=== PATIENT | female | born 1950 | race Caucasian/White ===

== ENCOUNTER 2016-12-28 11:05 | Outpatient (CLI) | payer MEDICARE, BC ==
[2016-12-28] MEDS ORDERED: Iopamidol 370 76% 100 ML VIAL ONE (14:09)
--- NOTE | 2016-12-28 14:18 | CT ---
EXAM: NONCONTRAST AND POSTCONTRAST HEAD CT: HISTORY: Dizziness. Lung cancer. Unsteady gait for a few weeks. COMPARISON: None. CORRELATION: Brain MRI 03/09/16. TECHNIQUE: Pre- and postcontrast head CT Is performed in the axial plane. FINDINGS: NONCONTRAST HEAD CT: There is vasogenic edema involving the right frontal lobe with sulcal effacement. No significant mi dline shift. Basilar cisterns are patent. With the exception of the right frontal lobe, cortical g ray-white matter differentiation is within normal limits. There is a hypodensity in the left cerebellar hemisphere which has evidence of edema and effacement of the cerebellar folia. There is adequate aeration of sinuses and mastoid air cells. Calvarium is intact. POSTCONTRAST HEAD CT: The aforementioned area of hypoattenuation of the right frontal lobe has 2 discrete enhancing foci. The smaller focus measures 0.8 x 0.8 cm. The larger focus measures 2.7 x 2.3 cm. Additional areas of enhancement are noted in the supratentorial brain. There is a focus of enhancement adjacent to the frontal horn of the left lateral ventricle measuring 0.6 cm. There is an enhancing focus involv ing the left frontal cortex measuring 0.5 cm. There is a peripherally enhancing focus in the left cerebellar hemisphere associated with the area o f hypoattenuation on the noncontrast exam measuring 2.2 x 2.1 cm. There is an adjacent enhancing fo cus measuring 0.6 cm. There is a small enhancing focus in the posteromedial right cerebellar hemisp here measuring 0.7 cm. IMPRESSION: Multifocal intracranial metastases. Metastatic lesions were not present on the previous MRI. Results of the study discussed with Dr. Singh 12/28/16 at 11:57 a.m. CODE CR POS: [facility]
== END 2016-12-28 11:06 | disposition home or self-care (01) ==
LOC: EDBD → CT 11:05
PROVIDERS: ATTEND Internal Medicine Hematology & Oncology
DX: C34.80 Malignant neoplasm of overlapping sites of unspecified bronchus and lung (principal); R42 Dizziness and giddiness; R11.0 Nausea; C79.31 Secondary malignant neoplasm of brain
CPT/HCPCS: 70470; 80053; 82248; 83615; 84100; 84295; 84550

== ENCOUNTER 2016-12-29 08:29 | Outpatient (CLI) | payer MEDICARE, BC ==
[2016-12-29] MEDS ORDERED: Gadobenate Dimeglumine 529 MG/1 ML (20ML VIAL) ONE (09:00)
--- NOTE | 2016-12-29 11:42 | MRI ---
MRI OF THE BRAIN WITHOUT AND WITH CONTRAST: COMPARISON: CT brain 12/28/16 and MRI brain 03/09/16. HISTORY: Lung cancer with brain metastases. TECHNIQUE: Multiplanar multisequence MR images were obtained in the brain without and with IV contrast. FINDINGS: There are multiple enhancing masses within the brain. Some of these masses also demonstrated restri cted diffusion. One of the masses in the right periventricular white matter measures 2.6 cm in size and has intrinsic high T1 signal which may represent hemorrhage. There are 2 masses in the right f rontal lobe, 1 mass in the left periventricular white matter, and multiple masses in the bilateral c erebellar hemispheres. Vasogenic edema is seen surrounding the larger masses. No midline shift or downward herniation is seen. The corpus callosum, pituitary, and craniocervical junction are unremarkable. The expected flow voi ds are present. IMPRESSION: Multifocal intracranial metastatic disease. POS: [facility]
== END 2016-12-29 08:30 | disposition home or self-care (01) ==
LOC: EDBD → SCSMRI 08:29
PROVIDERS: ATTEND Internal Medicine Hematology & Oncology
DX: C34.90 Malignant neoplasm of unspecified part of unspecified bronchus or lung (principal); C71.9 Malignant neoplasm of brain, unspecified
CPT/HCPCS: 70553; A9579

== ENCOUNTER 2017-01-11 10:06 | Inpatient (IN) | payer MEDICARE, BC ==
--- NOTE | 2017-01-11 11:10 | RAD ---
LEFT HIP TWO VIEWS: History: Fall, left hip pain. FINDINGS: No acute fracture or dislocation is identified. POS: [facility]
--- NOTE | 2017-01-11 11:14 | RAD ---
PORTABLE CHEST 1 VIEW: DATE: . TIME: 10:49 a.m. HISTORY: Hemoptysis. FINDINGS: Comparison is made with the exam of 11/30/16. There is continued elevation of the left hemidiaphragm with a small left pleural effusion. There is a right-sided Port-A-Cath which was also seen on the previous study. There is a left hilar and sup rahilar mass. There is widening of the mediastinum with a probable right paratracheal mass. No pne umothoraces are seen. Findings suspicious for malignancy/metastatic disease. POS: [facility]
--- NOTE | 2017-01-11 11:45 | CT ---
CT OF THE BRAIN WITHOUT IV CONTRAST: Indication: History of seizures. Comparison: 12-28-16 FINDINGS: The degree of vasogenic edema involving the metastatic lesion of the right frontal lobe has mildly i mproved. The degree of vasogenic edema surrounding the metastatic lesion within the lower left cereb ellar hemisphere is also mildly improved. There is no hydrocephalus. No midline shift is noted. No a cute infarct, hemorrhage, or hydrocephalus is present. Septum pellucidum and third ventricle are mid line. Skull and extracranial soft tissues are unremarkable. IMPRESSION: 1. Since the comparison CT examination dated 12-28-16, the degree of vasogenic edema involving the me tastatic lesion of the right frontal lobe left cerebellar hemisphere appears slightly less prominent . 2. No acute intracranial hemorrhage, infarct, or hydrocephalus is present. POS: [facility]
[2017-01-11 12:09] LABS: Hematocrit 47.5 % (36.0-47.0); Mean Platelet Volume 6.1 fL (7.4-10.4); Red Blood Cell (RBC) Count 4.88 mill/uL (4.20-5.40); White Blood Cell (WBC) Count 27.5 thou/uL (4.8-10.8)
[2017-01-11 12:34] LABS: ALT (SGPT) 75 U/L (8-55); AST (SGOT) 41 U/L (5-34); Alkaline Phosphatase 93 U/L (40-150); Anion Gap 14 mmol/L (10-20); BUN (Urea Nitrogen) 37 mg/dL (9.8-20.1); Bilirubin, Total 0.9 mg/dL (0.2-1.2); Calc. Creatinine Clearance 0 mL/min (70-130); Calcium 9.7 mg/dL (7.8-10.44); Carbon Dioxide 27 mmol/L (23-31); Chloride 92 mmol/L (98-107); Estimated GFR-MDRD 59; Globulin 2.7 g/dL (2.4-3.5); Magnesium 2.3 mg/dL (1.6-2.6); Protein, Total 6.4 g/dL (6.0-8.3)
[2017-01-11 12:38] LABS: Band 9 % (5-11); Hypersemented Neutrophil SLIGHT; Neutrophil 86 % (42-75)
[2017-01-11] MEDS ORDERED: Albuterol Sulfate 2.5 mg/3 ml Neb NEB PRN (14:17)
--- NOTE | 2017-01-11 14:46 | HP ---
PRIMARY CARE PHYSICIAN: Yosi Rivera M.D. REASON FOR ADMISSION: Dyspnea, seizure. HISTORY OF PRESENT ILLNESS: A 66-year-old female, who has metastatic small cell lung cancer who pre sented to the emergency room for the above-mentioned reason. Patient has a long history of small cell lung cancer which was diagnosed about 2-1/2 years ago. At that time, patient was started on chemotherapy with the carboplatin; and as per the patient's family member, patient had significant improvement and her PET scan came back negative. During that perio d, the patient also had CT chest and that showed new lymph node development in her thorax and that i s why the patient was given another round of carboplatin therapy and after that her focal lung lesio n was resolved and patient had a negative PET scan. During that period, patient also had a prophyla ctic radiation therapy to her brain. Patient was getting a different type of chemotherapy for recurrence. At that time, patient develope d atrial fibrillation required admission in hospital and pericardial window was done for severe sly cardial effusion. The patient was discharged after that she was complaining of nausea, vomiting, headache and she had MRI brain that confirmed brain metastasis. The patient was kept on Decadron and patient was getting intracranial radiation. Patient also saw MD Lazcano last Monday; and the MD Lazcano oncologist team recommended that they cannot do anything until intracranial metastasis result for study for a small cell lung cancer. On Monday after MD Lazcano visit, patient came to home. The patient was having increasing cough, incr easing shortness of breath. Yesterday night, the patient had hemoptysis one time and this morning t he patient had big amount of hemoptysis this morning. The patient was not able to go for radiation therapy on Monday and Monday because of she was not feeling good. The patient also had episode of fall on Monday when she went for radiation therapy, but because of fall she was hurting in her left hip and she was not able to go for radiation and next day she was also not able to go for radiation. Today, she took extra pain medicine and she decided to go to radiation. Before going for radiation, this morning, the patient had focal tonic-clonic activity of left upper extremity and the patient's face was rolled on the left side with eye rolled on the left side and th at lasted for 20 seconds and subsequently patient became normal. Patient was able to finish her rad iation therapy today, but patient was sent to the ER from Oncology Clinic. In Oncology clinic, her hip x-ray is negative for any fracture or dislocation. Her chest x-ray show ing wide mediastinum, left hilar and suprahilar mass and right paratracheal mass. CT brain did show degree of vasogenic edema and metastatic lesion in the right frontal lobe and left cerebral hemisph ere less prominent than before. Patient is still complaining of difficulty breathing. She is using her home nebulizer therapy. At this point, we are admitting this patient for dyspnea, new onset seizure. REVIEW OF SYSTEMS: Please see my HPI for pertinent positives and negatives. All other review of sy stems are reviewed and negative except as mentioned in the HPI. Constitutional: Weight loss or gain, ability to conduct usual activities. Skin: Rash, itching. Eyes: Double vision, pain. ENT/Mouth: Nose bleeding, neck stiffness, pain, tenderness. Cardiovascular: Palpitations, dyspnea on exertion, orthopnea. Respiratory: Shortness of breath, wheezing, cough, hemoptysis, fever or night sweats. Gastrointestinal: Poor appetite, abdominal pain, heartburn, nausea, vomiting, constipation, or diar taylor. Genitourinary: Urgency, frequency, dysuria, nocturia. Musculoskeletal: Pain, swelling. Neurologic/Psychiatric: Anxiety, depression. Allergy/Immunologic: Skin rash, bleeding tendency. PAST MEDICAL HISTORY: Metastatic small cell lung cancer with intrathoracic and intracranial metasta sis, COPD, chronic respiratory failure on home oxygen, dyslipidemia, migraine headache, paroxysmal a trial fibrillation, hypothyroidism, hypertension, history of pericardial effusion required pericardi al window. PAST SURGICAL HISTORY: Cholecystectomy, hysterectomy, partial thyroidectomy, tonsillectomy, lung bi opsy, Port-A-Cath placement, pericardial window. PAST PSYCHIATRIC HISTORY: Reviewed and negative. SOCIAL HISTORY: Patient is and lives at home with the family. No history of tobacco, alcoh ol or illicit drug abuse. She is a former smoker. She has a history of smoking about 1 pack per da y, but quit 3 years ago when she was diagnosed with the lung cancer. FAMILY HISTORY: No strong family history of premature coronary artery disease, stroke or cancer. ALLERGIES: STRAWBERRY and STREPTOMYCIN. CURRENT HOME MEDICATIONS: Albuterol nebulization as needed basis, aspirin 81 mg p.o. daily, Lipitor 20 mg p.o. daily, Fioricet one tablet as needed, Cardizem CD 180 mg p.o. daily, Synthroid 88 mcg p. o. daily, lisinopril 5 mg p.o. daily, Claritin 10 mg p.o. daily, sodium chloride 1 g p.o. t.i.d., No rco 5 one tablet q.4 hourly p.r.n., Symbicort 2 puff inhalation b.i.d., amiodarone 100 mg twice santiago y, Decadron 2 mg twice daily. EMERGENCY ROOM COURSE: Patient is given IV fluid. PHYSICAL EXAMINATION: VITAL SIGNS: On arrival, blood pressure 136/88, pulse 115, respiratory rate 20, temperature 98.5, s aturation 96% on 2 liters oxygen, weight 60.7 kilograms. GENERAL: Patient is currently alert, awake, in no obvious acute distress. HEAD: Normocephalic, atraumatic. Eyes: Pupils round, reactive to light. Extraocular muscles intact. ENT: Moist mucous membranes. No oral lesions. No pharyngeal erythema. No exudate. NECK: Supple. Range of motion is normal. No JVD. No thyromegaly. No carotid bruits. LUNGS: Bilateral end expiratory wheezing heard. Air entry reduced both sides. No accessory muscle s of respiration in use. CARDIAC: S1, S2 regular, tachycardia, no murmur, no gallop, no rub. ABDOMEN: Soft, bowel sounds present, nontender, nondistended. No organomegaly. No mass. No supra pubic tenderness. BACK: Unremarkable. No CVA tenderness. EXTREMITIES: Upper extremity passive movement of all joints are normal. Lower extremity, trace tobin ateral pitting edema noted on the foot. No calf tenderness. Good peripheral pulsation. SKIN: No skin rash. HEMATOLOGICAL SYSTEM: No lymphadenopathy. PSYCHIATRIC: Anxious affect. NEUROLOGIC: The patient is moving all four limbs. Motor and sensation within normal limits. No fo timmy neurological deficit noted. SIGNIFICANT LABS: WBC 27.5, hemoglobin 14.8, platelet 284,000 with bandemia. BMP: Sodium 129, pot assium 4.3, chloride 92, carbon dioxide 27, BUN 37, creatinine 0.95, glucose 128, calcium 9.7. LFT: AST 41, ALT 75, alkaline phosphatase 93, albumin 3.7. Prolactin 35.26. IMAGINGS: Hip x-ray negative for any fracture or dislocation. Chest x-ray shows Port-A-Cath in jazmin ce, small left pleural effusion, left hemidiaphragm elevation, left hilar and suprahilar mass, media stinal widening with right paratracheal mass. CT brain showing less prominent vasogenic edema and m etastatic lesion in the right frontal lobe and left cerebral hemisphere, no new findings. EKG showi ng sinus tachycardia. ADDITIONAL INFORMATION: The patient reports that she has finished antibiotic for urinary tract infe ction recently. Patient is getting nebulizer treatment every day basis, but that is not helping. ASSESSMENT AND PLAN: 1. Recurrent hemoptysis. At this point, differential diagnosis of lung cancer. Family member john bai that is on spatial chemotherapy she is on that contributing to her hemoptysis, but most likel y this is related with underlying bronchitis versus lung cancer. At this point, the patient does no t have any massive hemoptysis. We will monitor in hospital; if this we will also consult Dr. Ocampo to come and see this patient as well. We will empirically start on broad-spectrum antibiotic therap y. We will give her Robitussin-AC cough syrup while in hospital and will control her cough. 2. Seizure focal partial, this patient has brain metastases. Per patient, this type of seizure act ivity happened again 3 days ago and today which was witnessed. I will start Keppra 1 g IV twice abel ly. We will consult Neurology for their opinion. 3. Brain metastases. We will continue Decadron 4 mg IV q. 6 hourly while in hospital. Patient is also started on seizure medication. The patient will continue to get brain radiation therapy while in hospital. 4. Metastatic small cell lung cancer with intrathoracic and intracranial metastases. Dr. Francisco brandon be consulted and they will manage while in hospital. Further decision regarding goal of care an d palliative care option. We will defer to Oncology team. 5. Chronic obstructive pulmonary disease exacerbation. We will be continuing Decadron 4 mg IV q.6 h., DuoNeb q.4 h. Dulera 2 puffs inhalation b.i.d., empiric antibiotic therapy, cefepime and Levaqui n therapy, Mucinex 600 mg twice daily, oxygen to keep saturation above 92%. 6. Hyponatremia likely due to syndrome of inappropriate antidiuretic hormone secretion. We will co ntinue salt 1 g tablets 3 times daily as per home dosage. 7. Paroxysmal atrial fibrillation, not a candidate for chronic anticoagulation because of hemoptysi s as well as a recent pericardial effusion and brain metastasis. We will continue Cardizem-CD 180 m g p.o. daily. If patient is tachycardic, then we will increase the dose of Cardizem-CD 240 mg durin g this admission. 8. Hypothyroidism. We will continue Synthroid 88 mcg p.o. daily. 9. Hypertension. We will continue lisinopril 5 mg p.o. daily. 10. Deep venous thrombosis prophylaxis. Sequential compression device boots. No aspirin or any he nancy products because of hemoptysis. 11. Gastrointestinal prophylaxis, Protonix 40 mg p.o. daily. CODE STATUS: The patient is at this point FULL CODE and the patient's is surrogate decision maker. Disposition plan based on clinical course and pulmonary recommendations. We are expecting patient's stay in hospital more than 2 midnights. Plan of care discussed with the patient in detail.
[2017-01-11] MEDS ORDERED: Furosemide 20 MG/2 ML VIAL SLOW IVP SCH (15:00)
[2017-01-11] MEDS ORDERED: HYDROcodone/Acetaminophen 5/325 mg Tablet PO PRN ×2 (15:16→16:15)
[2017-01-11] MEDS ORDERED: Acetaminophen 325 MG TAB PO PRN (15:16)
[2017-01-11] MEDS ORDERED: Eucerin (Mineral Oil/Petrolatum,White) 30 gm Jar TOP PRN (15:16)
[2017-01-11] MEDS ORDERED: Mag-Al 1200 mg/1200 mg/30 ML UDCUP PO PRN (15:16)
[2017-01-11] MEDS ORDERED: Sodium Chloride 0.65% Nasal 44 ML BOT EA NARE PRN (15:16)
[2017-01-11] MEDS ORDERED: Senokot 8.6 MG TAB PO PRN (15:16)
[2017-01-11] MEDS ORDERED: Phenergan/Codeine 10-6.25mg/5ml UDCUP PO PRN (15:16)
[2017-01-11] MEDS ORDERED: Ondansetron ODT 4 MG TAB PO PRN (15:16)
[2017-01-11] MEDS ORDERED: Zolpidem Tartrate 5 MG TAB PO PRN (15:16)
[2017-01-11] MEDS ORDERED: Chloraseptic Spray 180 ml Bottle PO PRN (15:16)
[2017-01-11] MEDS ORDERED: Ondansetron HCl/PF 4 MG/2 ML Vial IVP PRN (15:16)
[2017-01-11] MEDS ORDERED: Loperamide HCl 2 MG CAP PO PRN (15:16)
[2017-01-11] MEDS ORDERED: Benzonatate 100 MG CAP PO PRN (15:16)
[2017-01-11] MEDS ORDERED: Diabetic Tussin 200 MG/10 ML UDCUP PO PRN (15:16)
[2017-01-11] MEDS ORDERED: cloNIDine HCl 0.1 MG TAB PO PRN (15:16)
[2017-01-11] MEDS ORDERED: Artificial Tears 18 DROP/0.9 ML EA EYE PRN (15:16)
[2017-01-11] MEDS ORDERED: Loratadine 10 MG TAB PO PRN (15:16)
[2017-01-11] MEDS ORDERED: Milk Of Magnesia 30 ML UDCUP PO PRN (15:16)
[2017-01-11] MEDS ORDERED: Lorazepam 1 MG TAB PO PRN (15:16)
[2017-01-11] MEDS: guaiFENesin ER 600 MG TAB PO SCH ×2 (15:45→20:14)
[2017-01-11] MEDS: Lorazepam 2 MG/ML VIAL SLOW IVP PRN (16:03)
[2017-01-11] MEDS ORDERED: ALPRAZolam 0.5 MG TAB PO PRN (16:15)
[2017-01-11] MEDS ORDERED: traMADol HCl 50 MG TAB PO PRN ×2 (16:15)
[2017-01-11 17:06] LABS: Bilirubin Negative (Negative); Blood, Urine Negative (Negative); Glucose, Urine (Dipstick) Negative (Negative); Ketone, Urine Negative (Negative); Nitrite Negative (Negative); Protein, Urine (Dipstick) Negative (Neg-Trace); Urobilinogen 0.2 mg/dL (0.2-1.0)
[2017-01-11 17:10] LABS: Bacteria/HPF 1+ HPF (None Seen); Hyaline Casts/LPF 4-6 HYALINE CAST LPF (0-3 Hyaline)
[2017-01-11 17:16] LABS: RBC/HPF None Seen HPF (0-3)
[2017-01-11] MEDS: Dexamethasone 4 mg/ml Vial SLOW IVP SCH (17:26)
[2017-01-11] MEDS: Cefepime 2 GM in Sodium Chloride 0.9% 100 ML IVPB SCH (17:27)
--- NOTE | 2017-01-11 17:45 | CON ---
DATE OF SERVICE: 01/11/2017 SERVICE: Pulmonary Medicine. REASON FOR CONSULTATION: Respiratory failure. HISTORY OF PRESENT ILLNESS: The patient is a 66-year-old white female. She unfortunately has small cell lung cancer with syndrome of inappropriate antidiuretic hormone secretion. She has been put i nto remission on two separate occasions. Her original diagnosis was made 2-1/2 years ago. Over the last 6 months, she has had increasing complications. She was doing fairly well until a couple of m onths ago when she had onset of pericardial effusion with tamponade physiology. A window was placed . Since then, she improved slightly, but never got back to her baseline. Recently, she was discove red to have some brain metastases. She has been undergoing radiation therapy of the brain. She cur rently denies any fever or chills. Since being placed on Decadron, her headache has gotten much bet ter. She has not experienced any nausea or vomiting. She has absolutely no appetite. She coughs o ccasionally and only brings up some clear white sputum. In the last 3 days; however, she had 2 sepa rate episodes of hemoptysis. There were roughly teaspoon in size, but has subsequently resolved onc e again. Ever since being started on Decadron, she has noticed increasing swelling in her legs and has had slowly progressive increasing dyspnea with exertion. She also notes orthopnea, and paroxysm al nocturnal dyspnea. She is discovered that by sitting essentially upright, she does not wake up i n the middle of the night gasping for air. She denies any true infectious symptoms. She has had no recent sick contacts, but is actively getting chemotherapy putting her at risk for healthcare assoc iated organisms. Lastly, the patient has a fairly significant chronic pain. The pain medicine she takes temporarily alleviates the pain, but she is frequently waking up in the middle of the night wi th discomfort. When takes a pain pill, she feels that she has a couple hours behind on her manageme nt. PAST MEDICAL HISTORY: 1. Small cell lung cancer. 2. Pericardial effusion. 3. Chronic obstructive pulmonary disease. 4. Chronic hypoxic respiratory failure. 5. Dyslipidemia. 6. Hypertension. 7. Hypothyroidism. 8. Atrial fibrillation, paroxysmal. 9. Migraine headache. 10. History of pericardial effusion with tamponade physiology. PAST SURGICAL HISTORY: 1. Cholecystectomy. 2. Hysterectomy. 3. Partial thyroidectomy. 4. Tonsillectomy. 5. Biopsy of the lung. 6. Pericardial window. 7. catheter placement. SOCIAL HISTORY: She is and lives at home with a very devoted family. She has no history of current alcohol, tobacco or illicit drug use. She is greater than [id number] history of smoking prior to 3 years ago. She has no other exposure to chemicals, dust asbestos or tuberculosis. FAMILY HISTORY: Noncontributory. ALLERGIES: STREPTOMYCIN, STRAWBERRY. MEDICATIONS: List of her inpatient medications as well as outpatient medications were reviewed and reconciled. I specifically discussed her inhalers and how she would like to take them during this h ospital stay. REVIEW OF SYSTEMS: General, head, ears, eyes, nose, throat, cardiovascular, respiratory, GI, , mu sculoskeletal, neurologic and skin is negative except as mentioned in the HPI. PHYSICAL EXAMINATION: VITAL SIGNS: Afebrile, pulse 108, respirations 14, respiration 22, saturation 96% on 3 liters of na fely cannula. GENERAL: The patient is awake and alert, in no apparent distress. LUNGS: There is decreased air entry with prolonged expiratory phase. Polyphonic wheezing is presen t. Truth be told, she is moving pretty decent air. Fine crackles are present in the bibasilar alberto ons. HEART: Tachycardic. Regular. ABDOMEN: Soft, nontender, nondistended. Bowel sounds are positive.. MUSCULOSKELETAL: No cyanosis or clubbing. There is 1+ pitting in the bilateral lower extremities, particularly below the ankles. : No Cantrell. NEUROLOGIC: Grossly nonfocal. LABORATORY DATA: WBC 27.5, and well above baseline. Neutrophil count is 86% +9 bands. Hemoglobin 14.8 and stable, platelets 284,000. Sodium 129 and roughly stable. Basic metabolic profile is othe rwise unremarkable. AST and ALT are minimally elevated. Prolactin level is elevated. Recent TSH w as performed and normal. IMAGIN. CT of the brain demonstrates increasing vasogenic edema around or surrounding brain lesions that had actually decreased in size compared to recent CT scan. 2. Chest x-ray demonstrates a left hilar mass, and left suprahilar mass, likely suggestive of atele ctasis of left upper lobe. This is slightly more involved in the chest x-ray from 6 months ago. Th ere is a new right-sided paratracheal lesion, which could represent atelectasis. That being said, p ostobstructive process cannot be excluded. 3. Left hip x-ray demonstrates no acute osseous abnormality. ASSESSMENT: 1. Acute on chronic hypoxic respiratory failure. 2. Chronic obstructive pulmonary disease with acute exacerbation. 3. Healthcare-associated pneumonia, possible (cannot rule out postobstructive lesion). 4. Hemoptysis. 5. Small cell lung cancer, extensive stage with metastases to the brain. 6. Syndrome of inappropriate antidiuretic hormone secretion. 7. Volume overload. 8. Focal motor seizure, suspected. 9. History of pericardial effusion with tamponade physiology. PLAN: I will consult Neurology and get an EEG. Keppra will be initiated this evening at a low dose . There is a possibility that the movement disorder that was witnessed by family was a focal motor seizure without secondary generalization, increasing dyspnea with exertion and orthopnea is likely m ultifactorial. I cannot exclude the possibility of post-obstructive process. I do agree with healnajma hintonre associated coverage with antibiotics. We will continue her home nebulized medications. She i s a little volume overloaded at this time. As such, I will provide a single dose of Lasix. If this improves some of her orthopnea, additional doses may need to be scheduled moving forward. 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 I will schedule Senna-S as the patient notes significant constipation. This is likely opioid induced as s he is relied essentially continuously on her pain medications for the last 3 weeks. I offered palli ative care consultation to discuss symptom management of her pain and constipation. This was well r eceived, so we will go ahead and put that in. Lastly, the patient does not make clinical improvemen t over the next 24-48 hours, CT of the chest may need to be considered to further clarify what inter freya changes happened to her lungs. I will leave that for Dr. Ocampo to decide. He will assume care in the morning.
[2017-01-11] MEDS ORDERED: Mometasone/Formoterol 120 PUFF INHALER INH SCH (18:30)
[2017-01-11] MEDS ORDERED: Ipratropium Bromide 2.5 ml Neb NEB SCH (19:00)
[2017-01-11] MEDS: Mometasone/Formoterol 120 PUFF INHALER INH SCH (19:01)
[2017-01-11] MEDS: Senokot S 8.6-50 MG TAB PO SCH (20:14)
[2017-01-11] MEDS: levETIRAcetam 500 MG TAB PO SCH (20:14)
--- NOTE | 2017-01-11 20:38 | CON ---
DATE OF CONSULTATION: 01/11/2017 REASON FOR CONSULTATION: Lung cancer. HISTORY OF PRESENT ILLNESS: Ms. Chan is a pleasant 66-year-old female who was treated for limite d stage small cell carcinoma of the lung after presenting with hypernatremia in 2014. She was stage IIIA lesion. She was treated with concurrent chemoradiotherapy. She did undergo prophylactic brai n radiation. She had relapse and underwent treatment with carbo and SAND WORKER-16. She was again in [facility] in 05/2016. Most recently in December, she had a pericardial effusion. There was no malignanc y identified. However, she began to have headaches and brain MRI confirmed metastatic disease. She was started on steroids and whole-brain radiation therapy. Over the weekend, she fell and injured her left hip. She missed radiation on Monday secondary to pain. On Monday, this week, she began t o having significant cough with a couple episodes of hemoptysis. This morning, her describe s seizure-like activity where she looks to her left, her arm was extended and shaking; however, she did not lose consciousness lasted approximately 15-20 seconds. She was also waking and complaining of hip pain this morning. She was referred to the emergency room for further workup. A brain CT sh owed improvement in her vasogenic edema compared with the CT scan of 2 weeks ago. She had a hip x-r ay which showed no fracture and a chest x-ray which again showed a small left pleural effusion and a left hilar suprahilar mass. There was also a possible right peritracheal mass. The patient was giv en IV steroid, dose of IV Keppra, pain medication and admitted for further treatment. Currently, [place] is complaining of hip pain. She is short of breath, her heart rate is mildly elevated, but she de nies any chest pain. PAST MEDICAL HISTORY: 1. 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 History of pericardial window with drainage. 3. Atrial fibrillation. 4. Hypothyroidism. 5. Hyperlipidemia. 6. Coronary artery disease. 7. Hypertension. 8. Chronic obstructive pulmonary disease. PAST SURGICAL HISTORY: 1. Cholecystectomy. 2. Hysterectomy. 3. Partial thyroidectomy. 4. Tonsillectomy. 5. MediPort placement. 6. Pericardial window. ALLERGIES: STREPTOMYCIN and STRAWBERRIES. HOME MEDICATIONS: 1. Aspirin 81 mg daily. 2. Demeclocycline 300 mg b.i.d. 3. Diltiazem ER 180 mg daily. 4. Hydrocodone 5/325 two tabs q.6 h. p.r.n. 5. Levothyroxine 88 mcg daily. 6. Lipitor 20 daily. 7. Lisinopril 5 mg daily. 8. Loratadine 10 mg daily. 9. Namenda 5 mg daily. 10: Potassium chloride 20 mEq daily. 11. Spiriva daily. FAMILY HISTORY: Mother had lung cancer. SOCIAL HISTORY: , has 2 children. Former smoker. No alcohol or illicit drug use. REVIEW OF SYSTEMS: Constitutional: No fever, chills, or night sweats. Eyes: No blurred or double vision. ENT: No pain, hoarseness, sore throat, or dysphagia. Cardiovascular: No chest pain. P ositive for palpitations and syncope. Respiratory: Positive for dyspnea on exertion, orthopnea, sh ortness of breath and chronic cough. Gastrointestinal: No nausea, vomiting, diarrhea, constipation or abdominal pain. Genitourinary: No dysuria or hematuria. Musculoskeletal: Positive for left h ip pain. SKIN: No rash or pruritus. Hematological: Positive for hemoptysis. Neurologic: Positive for pos sible seizure and headache. No numbness or tingling. Psychiatric: Positive for anxiety and depres char. PHYSICAL EXAMINATION: VITAL SIGNS: Temperature is 97.8, pulse is 140, respiratory rate 20, BP is 125/80. She is 94% on r oom air. GENERAL: Ill-appearing female in mild respiratory distress. HEENT: Normocephalic, atraumatic. Pupils are equal and reactive to light. NECK: Supple. CV: Tachycardia. LUNGS: Diminished throughout. EXTREMITIES: No clubbing, cyanosis or edema. GI: Abdomen is soft, nontender. SKIN: There is no rash. HEMATOLOGIC: Scattered bruising. NEUROLOGICAL: Nonfocal. PSYCHIATRIC: The patient is anxious, but answers questions appropriately. PERTINENT LABORATORY AND X-RAYS: Current WBCs are 27.5, hemoglobin 14.8, hematocrit 47.5, platelet count 284,000 86% neutrophils, 9% bands, 3% lymphocytes. Sodium 129, potassium 4.3, chloride 92, CO 2 is 27, BUN is 37, creatinine 0.95, calcium 9.7, magnesium 2.3, total bilirubin is 0.4, AST 41, ALT 75, alkaline phosphatase 93. BNP is 42. Serum total protein is 6.4, albumin 3.7, globulin 2.7. P rolactin 35. ASSESSMENT AND PLAN: 1. Extensive stage small cell lung cancer with brain metastasis on whole brain radiation. 2. Possible focal seizures. 3. Hemoptysis. 4. Left hip pain status post fall. 5. Atrial fibrillation. DISCUSSION: The patient has been started on IV seizure medications. She has been placed on IV ster oids. We will adjust her pain medications and add anti-anxiety medication Pulmonary consult has bee n placed. We will inform Dr. Fernch of her admission. Thank you for the consult. We will follow her closely.
[2017-01-11] MEDS ORDERED: FLU VACC TS2017-18 (>65YR) 0.5 ML SYRINGE IM ONE (21:00)
[2017-01-11] MEDS ORDERED: Atorvastatin Calcium 20 MG TAB PO SCH (21:00)
--- NOTE | 2017-01-12 00:05 | CON ---
DATE OF CONSULTATION: 01/11/2017 LOCATION: Oncology, 132. CONSULTING PHYSICIAN: Dr. Valdez. REASON FOR CONSULTATION: Seizures. HISTORY OF PRESENT ILLNESS: The history is obtained from the chart review and from the patient and family members, who were present at bedside. The patient is a 66-year-old female with metastatic sm all cell lung cancer, who has a history of small cell lung cancer which was diagnosed about 2-1/2 ye ars ago. At that point, the patient was started on chemotherapy. Initially there was significant i mprovement. Subsequently, a new lymph node development was noted. Patient was given another round of chemotherapy and her focal lung lesion was removed. Patient also has brain metastasis from her l piper cancer and she has had radiation therapy to her brain. The patient was also kept on Decadron fo r brain metastases. The patient has been seen by MD Lazcano. Patient recently has been having inc reasing cough, shortness of breath, hemoptysis. Before going for radiation this morning around 8, the patient had focal tonic clonic activity of the left upper extremity and the patient's head and eyes are deviated to the left and this lasted for a bout 20 seconds and the patient became normal. There was no loss of consciousness. No tongue bitin g, no urinary incontinence. It appeared that the patient had a similar seizure episode 3 days back. No prior history of seizures before that. The patient was subsequently admitted to the hospital a nd she has not had any more seizures since she has been in the hospital. PAST MEDICAL HISTORY: As mentioned in the HPI. In addition, she has chronic obstructive pulmonary disease; chronic respiratory failure, on home oxygen; dyslipidemia; migraine headache; paroxysmal at rial fibrillation; hypothyroidism; hypertension; history of pericardial effusion requiring pericardi al window. PAST SURGICAL HISTORY: Cholecystectomy, hysterectomy, partial thyroidectomy, tonsillectomy, lung bi opsy, pericardial window. PAST PSYCHIATRIC HISTORY: None. SOCIAL HISTORY: No history of tobacco, alcohol or illicit drug use. She was a former smoker. FAMILY HISTORY: Noncontributory. ALLERGIES: Please review the chart. HOME MEDICATIONS: Please review the chart. REVIEW OF SYSTEMS: As mentioned in the HPI, otherwise negative. PHYSICAL EXAMINATION: VITAL SIGNS: Temperature 97.9, pulse rate 114, respiratory rate 20, O2 sats 100% on 4 liter oxygen, blood pressure 144/63 GENERAL: Patient is in apparent distress with shortness of breath and cough. HEENT: Normocephalic, atraumatic. Normal sclerae. NECK: Supple. RESPIRATORY: Clear to auscultation bilaterally. CARDIOVASCULAR: Regular rate and rhythm. NEUROLOGIC: The patient is awake, alert, oriented. Speech and language appear to be intact. Crani al nerves: No facial droop noted. Extraocular movements were intact. No nystagmus noted. No forc ed deviation of eyes noted. No facial droop noted. Visual pedro difficult to assess. Motor: Nor mal tone and bulk. The patient was able to move all her extremities symmetrically and spontaneously . The rest of the exam was difficult to obtain because of the patient's shortness of breath, cough and hemoptysis. LABORATORY DATA: CBC with increased white cell count. Chemistry: Sodium 129, BUN 37, creatinine 0 .95, GFR 59. AST, ALT elevated and prolactin elevated at 35.26. Urinalysis with large leukocyte es terase, greater than 50 WBCs. IMAGING: CT head done on admission showed metastatic lesions to the brain, but the degree of vasoge lala edema involving the metastatic lesion of the right frontal lobe, left cerebellar hemisphere appe ar slightly less prominent compared to the CT scan before. No acute hemorrhage, infarct or hydrocep halus. EEG was attempted, but because the patient had significant shortness of breath and could not lay flat, it was not performed. MEDICATIONS: The patient was loaded with Keppra and is currently on Keppra 500 mg twice a day. IMPRESSION: 1. Focal seizures involving the left upper extremity, resolved. 2. Brain metastasis. 3. History of small cell lung cancer. RECOMMENDATIONS: 1. Recommend continuing patient on Keppra 500 mg twice a day for now. If patient have more seizure s in the future, the dose can be increased as needed. 2. Since the patient cannot lay flat and she is in a lot of distress due to cough and shortness of breath, EEG could not be completed and could not be performed at this point. If EEG cannot be done, it should be okay because it would not change the treatment plan. The patient is already on seizur e medication, Keppra, so EEG would not alter or change the current treatment plans. It should be ok ay if EEG cannot be done due to medical reasons. It should be okay, the patient can be continued on Keppra and the dose can be increased if needed if patient has more seizures. 3. Continue medical management per primary team. 4. No other recommendations from a neurological standpoint. 5. Continue seizure precautions. Please call us with questions.
[2017-01-12] MEDS: Dexamethasone 4 mg/ml Vial SLOW IVP SCH ×3 (00:10→12:36)
[2017-01-12] MEDS: Lorazepam 2 MG/ML VIAL SLOW IVP PRN ×8 (03:04→22:28)
[2017-01-12 03:43] LABS: Mean Platelet Volume 6.1 fL (7.4-10.4); Red Blood Cell (RBC) Count 4.49 mill/uL (4.20-5.40); White Blood Cell (WBC) Count 24.1 thou/uL (4.8-10.8)
[2017-01-12 03:59] LABS: ALT (SGPT) 76 U/L (8-55); AST (SGOT) 43 U/L (5-34); Alkaline Phosphatase 82 U/L (40-150); Anion Gap 9 mmol/L (10-20); BUN (Urea Nitrogen) 37 mg/dL (9.8-20.1); Bilirubin, Total 0.9 mg/dL (0.2-1.2); Calc. Creatinine Clearance 0 mL/min (70-130); Calcium 9.4 mg/dL (7.8-10.44); Carbon Dioxide 29 mmol/L (23-31); Chloride 95 mmol/L (98-107); Estimated GFR-MDRD 68; Globulin 2.3 g/dL (2.4-3.5); Protein, Total 5.8 g/dL (6.0-8.3)
[2017-01-12 04:38] LABS: Neutrophil 95 % (42-75); Toxic Granulation SLIGHT
[2017-01-12] MEDS: Cefepime 2 GM in Sodium Chloride 0.9% 100 ML IVPB SCH (05:15)
[2017-01-12] MEDS: Mometasone/Formoterol 120 PUFF INHALER INH SCH ×2 (08:03→19:01)
[2017-01-12] MEDS ORDERED: Scopolamine 1.5 mg/72 hour Patch TD SCH (09:00)
[2017-01-12] MEDS ORDERED: Lisinopril 5 MG TAB PO SCH (09:00)
--- NOTE | 2017-01-12 10:00 | PDOC.PN ---
- Subjective Encounter Start Date: 01/12/17 Encounter Start Time: 08:15 -: old records requested/rev pt had very rough night, she was uncomfortable and unable to sleep, she was in respiratory distress, she was given morphin and ativan and now sleeping and gasping for air, family bedside - Objective Resuscitation Status: Resuscitation Status DNR:Do Not Resuscitate MAR Reviewed: Yes Vital Signs & Weight: Vital Signs (12 hours) Temp Pulse Resp BP BP Pulse Ox 01/12/17 07:30 97.0 F L 111 H 24 H 96 01/12/17 07:08 97.0 F L 111 H 24 H 110/52 L 97 01/12/17 03:24 118 H 20 129/60 97 01/12/17 03:03 114 H 20 98 I&O: 01/11/17 01/12/17 01/13/17 06:59 06:59 06:59 Intake Total 200 Output Total 3330 Balance -3130 Result Diagrams: 01/12/17 03:00 01/12/17 03:00 Phys Exam - Physical Examination Constitutional: NAD HEENT: PERRLA, sclera anicteric dry MM Neck: no JVD, supple reduced air entry, gurgling sound in throat, gasping for air Cardiovascular: RRR, no significant murmur tachycardia Gastrointestinal: soft, no distention, positive bowel sounds Musculoskeletal: pulses present, edema present Lymphatic: no nodes Skin: normal turgor Dx/Plan (1) Focal motor seizure Code(s): G40.109 - LOCAL-REL SYMPTC EPI W SIMP PRT SEIZ,NOT NTRCT, W/O STAT EPI Status: Acute (2) Hemoptysis Code(s): R04.2 - HEMOPTYSIS Status: Acute (3) COPD exacerbation Code(s): J44.1 - CHRONIC OBSTRUCTIVE PULMONARY DISEASE W (ACUTE) EXACERBATION Status: Acute (4) Acute on chronic respiratory failure with hypoxemia Code(s): J96.21 - ACUTE AND CHRONIC RESPIRATORY FAILURE WITH HYPOXIA Status: Acute (5) Metastatic lung cancer (metastasis from lung to other site) Code(s): C34.90 - MALIGNANT NEOPLASM OF UNSP PART OF UNSP BRONCHUS OR LUNG Status: Chronic Qualifiers: Laterality: unspecified laterality Qualified Code(s): C34.90 - Malignant neoplasm of unspecified part of unspecified bronchus or lung (6) Hypertension Code(s): I10 - ESSENTIAL (PRIMARY) HYPERTENSION Status: Chronic (7) Hypothyroidism Code(s): E03.9 - HYPOTHYROIDISM, UNSPECIFIED Status: Chronic (8) Atrial fibrillation Code(s): I48.91 - UNSPECIFIED ATRIAL FIBRILLATION Status: Chronic Qualifiers: Atrial fibrillation type: paroxysmal Qualified Code(s): I48.0 - Paroxysmal atrial fibrillation (9) Physical deconditioning Code(s): R53.81 - OTHER MALAISE Status: Acute - Plan cont current plan of care, plan discussed w/ family, continue antibiotics * pt's condition declining rapidly, code status is DNR * discussed hospice option for comfort care and and daughter agreed to make her comfortable * will consult case finisher for hospice * prognosis is very poor * medication reviewed as below * symptomatic treatment * discussed with family bedside * all managing consultant clinical professor recommendation noted. Review of Systems - Review of Systems Other: unable to review as pt is not responsive - Medications/Allergies Allergies/Adverse Reactions: Allergies Allergy/AdvReac Type Severity Reaction Status Date / Time strawberry Allergy Verified 01/11/17 18:45 streptomycin Allergy Verified 01/11/17 18:45 Medications: Current Medications Acetaminophen (Tylenol) 650 mg PO Q4H PRN PRN Reason: Headache/Fever or Pain Hydrocodone Bitart/Acetaminophen ([place] 5/325) 1 tab PO Q4H PRN PRN Reason: Moderate Pain (4-6) Last Admin: 01/11/17 15:32 Dose: 1 tab Hydrocodone Bitart/Acetaminophen ([place] 5/325) 2 tab PO Q4H PRN PRN Reason: Moderate to Severe Pain (6-10) Al Hydroxide/Mg Hydroxide (Maalox) 30 ml PO Q6H PRN PRN Reason: Heartburn or Indigestion Albuterol Sulfate (Ventolin) 2.5 mg NEB Q2H PRN PRN Reason: Wheezing Last Admin: 01/12/17 03:03 Dose: 2.5 mg Albuterol/Ipratropium (Duoneb) 3 ml NEB BID-RT BRAD Last Admin: 01/12/17 08:01 Dose: Not Given Alprazolam (Xanax) 0.5 mg PO TIDPRN PRN PRN Reason: Anxiety/Restlessness/Sleep Last Admin: 01/11/17 20:13 Dose: 0.5 mg Amiodarone HCl (Cordarone) 100 mg PO BID [facility] Last Admin: 01/11/17 20:13 Dose: 100 mg Artificial Tears (Tears Naturale) 0 drop EA EYE PRN PRN PRN Reason: Dry Eyes Atorvastatin Calcium (Lipitor) 20 mg PO HS [facility] Last Admin: 01/11/17 20:13 Dose: 20 mg Benzonatate (Tessalon) 100 mg PO Q4H PRN PRN Reason: Cough Clonidine HCl (Catapres) 0.1 mg PO Q4H PRN PRN Reason: Systolic BP > 180 Dexamethasone (Decadron) 4 mg SLOW IVP Q6HR [facility] Last Admin: 01/12/17 06:39 Dose: 4 mg Diltiazem HCl (Cardizem Cd) 240 mg PO DAILY [facility] Guaifenesin (Mucinex) 600 mg PO TID [facility] Last Admin: 01/11/17 20:14 Dose: 600 mg Hydralazine HCl (Apresoline) 10 mg SLOW IVP Q4H PRN PRN Reason: Systolic BP > 180 Cefepime HCl 2 gm/ Sodium (Chloride) 100 mls @ 200 mls/hr IVPB 0500,1700 [facility] Last Admin: 01/12/17 05:15 Dose: 100 mls Levofloxacin 500 mg/ Device 100 mls @ 100 mls/hr IVPB 1600 [facility] Last Admin: 01/11/17 15:45 Dose: 100 mls Levetiracetam (Keppra) 500 mg PO BID [facility] Last Admin: 01/11/17 20:14 Dose: 500 mg Loratadine (Claritin) 10 mg PO DAILYPRN PRN PRN Reason: Sinus Symptoms Lorazepam (Ativan) 2 mg SLOW IVP Q2H PRN PRN Reason: Anxiety/Agitation Magnesium Hydroxide (Milk Of Magnesium) 30 ml PO DAILYPRN PRN PRN Reason: Constipation Mineral Oil/White Petrolatum (Eucerin Cream) 0 gm TOP BIDPRN PRN PRN Reason: Dry Skin Mometasone Furoate/Formoterol Fumar (Dulera 200 Mcg/5 Mcg Inhaler) 2 puff INH BID-RT [facility] Last Admin: 01/12/17 08:03 Dose: Not Given Morphine Sulfate (Morphine Sulfate) 4 mg SLOW IVP Q1H PRN PRN Reason: SHORTNESS OF BREATH OR PAIN Ondansetron HCl (Zofran Odt) 4 mg PO Q6H PRN PRN Reason: Nausea/Vomiting Ondansetron HCl (Zofran) 4 mg IVP Q6H PRN PRN Reason: Nausea/Vomiting Pantoprazole Sodium (Protonix) 40 mg PO 2100 BRAD Phenol (Chloraseptic [place] 180 Ml Bot) 0 ml PO PRN PRN PRN Reason: Sore Throat Promethazine HCl/Codeine (Phenergan/Codeine Syrup) 5 ml PO Q4H PRN PRN Reason: Cough Scopolamine (Transderm Scop) 1.5 mg TD Q3D BRAD Senna/Docusate Sodium (Senokot S) 2 tab PO BID BRAD Last Admin: 01/11/17 20:14 Dose: 2 tab Sodium Chloride ([place]al [place] 0.65%) 0 ml EA NARE QIDPRN PRN PRN Reason: Nasal Congestion Tramadol HCl (Ultram) 50 mg PO Q4H PRN PRN Reason: Moderate Pain (4-6) Tramadol HCl (Ultram) 100 mg PO Q4H PRN PRN Reason: Moderate to Severe Pain (6-10) Zolpidem Tartrate (Ambien) 5 mg PO HSPRN PRN PRN Reason: Insomnia
[2017-01-12] MEDS: levETIRAcetam 500 MG TAB PO SCH (10:19)
[2017-01-12] MEDS: guaiFENesin ER 600 MG TAB PO SCH ×2 (10:19→16:47)
[2017-01-12] MEDS: Senokot S 8.6-50 MG TAB PO SCH (10:20)
[2017-01-12] MEDS: Atropine Sulfate 1% Ophth Soln 5 ml Bottle PO PRN ×5 (16:40→22:28)
[2017-01-12] MEDS ORDERED: Hyoscyamine Sulfate SL 0.125 mg Tablet SL PRN (22:22)
[2017-01-12] MEDS ORDERED: Scopolamine 1.5 mg/72 hour Patch TOP SCH (22:30)
[2017-01-13] MEDS: Atropine Sulfate 1% Ophth Soln 5 ml Bottle PO PRN ×4 (00:51→05:41)
[2017-01-13] MEDS: Lorazepam 2 MG/ML VIAL SLOW IVP PRN ×5 (00:52→09:21)
[2017-01-13] MEDS: Atropine Sulfate 1 mg/1 ml Vial SC PRN ×2 (01:43→08:02)
[2017-01-13] MEDS: Mometasone/Formoterol 120 PUFF INHALER INH SCH (06:58)
[2017-01-13 07:15] VITALS: BP 86/47
[2017-01-13 08:29] VITALS: TEMP 97
--- NOTE | 2017-01-13 15:42 | DS ---
COLLEGE ADVISOR/ONCOLOGIST: Dr. Zen French PRIMARY CARE PHYSICIAN: Dr. Yosi Rivera. DATE OF ADMISSION: 01/11/2017 DATE OF EXPIRATION: 01/13/2017 at 10:42 a.m., pronounced by nursing. CAUSE OF : 1. Metastatic small cell lung carcinoma with metastatic lesions to the central nervous system. 2. Focal partial seizure attributed to a central nervous system metastasis with vasogenic edema. 3. Tobacco abuse. MEDICAL COMORBIDITIES: 1. Chronic obstructive pulmonary disease with exacerbation. 2. Hyponatremia secondary to syndrome of inappropriate antidiuretic hormone secretion. 3. Paroxysmal atrial fibrillation. 4. Hypothyroidism. 5. Essential hypertension. RECENT SURGICAL PROCEDURES: None. TOBACCO HISTORY: Yes. BRIEF HISTORY AND HOSPITAL COURSE: The patient is a 66-year-old female with a long-term history of tobacco abuse who quit smoking complicated by COPD, complicated by development of small cell lung ca rcinoma 3 years ago approximately in 2013 where upon the patient quit smoking at that time. She was managed by Dr. French of Hematology/Oncology. The patient had undergone chemotherapy. Per their ca re; however, there was progression of disease. The patient presented to the emergency room at [facility] 01/11/2017 with a chief complaint of seizures and shortness of breath. The p atient was admitted to the Medicine Service for COPD exacerbation and further evaluation of her seiz ures. C\T\S imaging consisting of a CT scan of the brain revealed right frontal and left cerebellar brain masses consistent with metastatic lesions associated with vasogenic edema. Neurology was consulted . The patient deteriorate rapidly during hospital stay and was made comfort measures. Inpatient Hospice consultation was requested. While awaiting inpatient hospice the patient at 10:42 a.m. on the morning of 01/13/2017. The patient was pronounced by nursing. The patient is surrounded by family members with spiritual counseling. DISCHARGE MEDICATIONS: Please see medication reconciliation form. Time spent approximately 20 minutes.
--- NOTE | 2017-01-14 14:49 | EKG ---
Test Reason : Blood Pressure : / mmHG Vent. Rate : 118 BPM Atrial Rate : 118 BPM P-R Int : 136 ms QRS Dur : 096 ms QT Int : 338 ms P-R-T Axes : 052 039 045 degrees QTc Int : 473 ms Sinus tachycardia Possible Left atrial enlargement Possible Anterior infarct , age undetermined Abnormal ECG Confirmed by KARENA YOUNG, LUIS Mcneil ([id number]), editor in chief newspaper CARLOS ZAMUDIO ([id number]) on 01/14/2017 2:49:03 PM Referred By: HEATHER THURSTON Confirmed By:LUIS THURSTON MD
[2017-01-15] MEDS ORDERED: Scopolamine 1.5 mg/72 hour Patch TOP SCH (21:00)
== END 2017-01-13 10:42 | disposition expired | DRG 100 ==
LOC: ERS 10:06 → ONC 13:23
PROVIDERS: ADMIT Internal Medicine; ATTEND Internal Medicine
DX: G40.109 Localization-related (focal) (partial) symptomatic epilepsy and epileptic syndromes with simple partial seizures, not intractable, without status epilepticus (principal); G93.6 Cerebral edema; J96.22 Acute and chronic respiratory failure with hypercapnia; C34.02 Malignant neoplasm of left main bronchus; C79.31 Secondary malignant neoplasm of brain; J18.9 Pneumonia, unspecified organism; C34.91 Malignant neoplasm of unspecified part of right bronchus or lung; J44.1 Chronic obstructive pulmonary disease with (acute) exacerbation; E87.0 Hyperosmolality and hypernatremia; E22.2 Syndrome of inappropriate secretion of antidiuretic hormone; R04.2 Hemoptysis; J44.0 Chronic obstructive pulmonary disease with (acute) lower respiratory infection; Z99.81 Dependence on supplemental oxygen; I48.0 Paroxysmal atrial fibrillation; I10 Essential (primary) hypertension; Z92.21 Personal history of antineoplastic chemotherapy; Z92.3 Personal history of irradiation; E89.0 Postprocedural hypothyroidism; Z95.828 Presence of other vascular implants and grafts; Z87.891 Personal history of nicotine dependence; Z88.1 Allergy status to other antibiotic agents; Z91.018 Allergy to other foods; Z79.82 Long term (current) use of aspirin; Z79.891 Long term (current) use of opiate analgesic; Z79.52 Long term (current) use of systemic steroids; Z51.5 Encounter for palliative care; G43.909 Migraine, unspecified, not intractable, without status migrainosus; I25.10 Atherosclerotic heart disease of native coronary artery without angina pectoris; Y95 Nosocomial condition; E87.70 Fluid overload, unspecified; K59.03 Drug induced constipation; T40.2X5A Adverse effect of other opioids, initial encounter; Z66 Do not resuscitate; R53.81 Other malaise
CPT/HCPCS: 36415; 70450; 71010; 80053; 81001; 83735; 83880; 84146; 84443; 85025; 86850; 86900; 86901; 93005; 94640; 96360; 96361; A4216; J0461; J0692; J1100; J1940; J1956; J2060; J2270; J7050; J7611; J7620